=== PATIENT | female | born 1995 | race Caucasian/White ===

== ENCOUNTER 2018-09-03 10:41 | Inpatient (IN) ==
[2018-09-03] MEDS ORDERED: Haloperidol Lactate 5 MG/ML VIAL IM PRN (10:55)
[2018-09-03] MEDS ORDERED: MOM Conc 10 ML UD.LIQ PO PRN (10:55)
[2018-09-03] MEDS ORDERED: traZODone 50 MG TABLET PO PRN (10:55)
[2018-09-03] MEDS ORDERED: Mag Hydrox/Al Hydrox/Simeth 30 ML UDC PO PRN (10:55)
[2018-09-03] MEDS ORDERED: *HR* LORazepam 1 MG TABLET PO PRN (10:55)
[2018-09-03] MEDS ORDERED: *HR* LORazepam 2 MG/ML VIAL IM PRN (10:55)
[2018-09-03] MEDS ORDERED: Acetaminophen 325 MG TABLET PO PRN (10:55)
[2018-09-04] MEDS: hydrOXYzine pamoate 25 MG CAPSULE PO PRN (00:09)
[2018-09-04] MEDS: amLODIPine 5 MG TABLET PO SCH (09:32)
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
[2018-09-05] MEDS: amLODIPine 5 MG TABLET PO SCH (09:14)
[2018-09-05] MEDS: BuPROPion XL (24 HR) 150 MG TABLET PO SCH (09:14)
--- NOTE | 2018-09-05 10:16 | Psychiatry Progress Note ---
Date of Encounter: 09/05/18 Time of Encounter: 10:14 Subjective Interval history: Pt got her first dose of Wellbutrin this morning. So far she is tolerating it OK. She is still reporting some depression, sadness, and hopeless thoughts but no active suicidal ideation. No psychosis. Sleep was fair, appetite OK. Arm pain controlled. She plans to go live with her father which she said is a safe, supportive enviornment. 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 Review of Systems Constitutional: Denies: fever, chills, weakness, weight change Cardiovascular: Denies: chest pain, palpitations, dyspnea on exertion Respiratory: Denies: cough, dyspnea, wheezes Neurological: Denies: headache, weakness, numbness, memory loss Psychiatric: Reports: depression, hopelessness, mood swings Results - Vital Signs Vital Signs: Temp Pulse Resp BP Pulse Ox 98.6 F 86 16 139/92 99 09/04/18 21:00 09/04/18 21:00 09/04/18 21:00 09/04/18 21:00 09/04/18 21:00 - Labs Labs: Laboratory Results - last 48 hr 09/03/18 09/04/18 23:42 00:17 POC Glucose 71 113 H Assessment and Plan (1) Major depress dis, severe Current visit: Yes Status: Acute Plan: Continue hospitalization, Close observation, Suicide Precautions per unit protocol, Encourage participation in unit milieu, Group Therapy, Monitor sleep, Monitor appetite Additional Plan: continue wellbutrin Risks, benefits, side effects, alternatives discussed w/pt: Yes Patient agreeable to treatment: Yes Consult Discharge Plan - Plan Referrals: NONE,PCP [Primary Care Provider] - Psychiatry Exam - Constitutional Vitals: Temp Pulse Resp BP Pulse Ox 98.6 F 86 16 139/92 99 09/04/18 21:00 09/04/18 21:00 09/04/18 21:00 09/04/18 21:00 09/04/18 21:00 General appearance: disheveled - Musculoskeletal Gait: slow Station: relaxed Strength & Tone: normal for patient - Psychiatric Patient Orientation: Yes Person, Yes Time, Yes Place, Yes Circumstance Level of alertness: Alert Behavior: distractible Psychomotor activity: Slowed Eye Contact: Minimal Contact Mood Description: Depressed Affect description: blunted Speech Volume: Soft/Quiet Speech pattern: normal rhythm Language & Vocabulary: consistent with education
[2018-09-06] MEDS: amLODIPine 5 MG TABLET PO SCH (09:14)
[2018-09-06] MEDS: BuPROPion XL (24 HR) 150 MG TABLET PO SCH (09:14)
--- NOTE | 2018-09-06 09:32 | Psychiatry Progress Note ---
Date of Encounter: 09/06/18 Time of Encounter: 09:30 Subjective Interval history: Patient reports that she is tolerating Wellbutrin she continues to report depression with sad mood decrease interests and feelings of anhedonia. She says she is going to live with her father which is an okay living situation. She said her older sister is very supportive of her. She does want to get back into the workforce. She says she plans not to have any further contact with her ex- boyfriend. She reports that she has cut in the past but does not have any collection of razors or other implements she uses to cut. She said that she plans not to do this anymore. She denies active suicidal thoughts at this time but does have some ongoing hopelessness. Review of Systems Neurological: Denies: headache, weakness, numbness, memory loss Psychiatric: Reports: depression, difficulty concentrating, hopelessness, mood swings Results - Vital Signs Vital Signs: Temp Pulse Resp BP Pulse Ox 98.6 F 97 18 144/100 97 09/05/18 20:08 09/05/18 20:08 09/05/18 20:08 09/05/18 20:08 09/05/18 20:08 Assessment and Plan (1) Major depress dis, severe Current visit: Yes Status: Acute Additional Plan: The therapist is working on setting up outpatient appointments for her. I will consider increasing her Wellbutrin depending on how she progresses over the next 1-2 days. I will continue monitoring for side effects. Encourage group attendance. Risks, benefits, side effects, alternatives discussed w/pt: Yes Patient agreeable to treatment: Yes Consult Discharge Plan - Plan Referrals: NONE,PCP [Primary Care Provider] - Psychiatry Exam - Constitutional Vitals: Temp Pulse Resp BP Pulse Ox 98.6 F 97 18 144/100 97 09/05/18 20:08 09/05/18 20:08 09/05/18 20:08 09/05/18 20:08 09/05/18 20:08 General appearance: disheveled, obese - Musculoskeletal Gait: slow Station: slouched Strength & Tone: normal for patient - Psychiatric Patient Orientation: Yes Person, Yes Time, Yes Place Level of alertness: Alert Behavior: withdrawn Psychomotor activity: Slowed Eye Contact: Maintains Eye Contact Mood Description: Depressed Affect description: blunted Speech Volume: Soft/Quiet Speech pattern: limited Language & Vocabulary: consistent with education Thought Process: Intact Thought Content: Yes Intact, No Suicidal ideation, No Homicidal ideation Perceptual Disturbances: No Auditory hallucinations, No Visual hallucinations Attention Span Ability: Capable of Focused Attention Memory Description: Grossly Intact Patient Reliability: Reliable Historian Fund of knowledge: Yes abstraction ability, Yes aware of current events Intelligence Estimate: Average Judgment: Limited Insight: Minimal
[2018-09-06] MEDS: hydrOXYzine pamoate 25 MG CAPSULE PO PRN (20:35)
[2018-09-07] MEDS: BuPROPion XL (24 HR) 150 MG TABLET PO SCH (09:33)
[2018-09-07] MEDS: amLODIPine 5 MG TABLET PO SCH (09:33)
--- NOTE | 2018-09-07 10:30 | Psychiatry Progress Note ---
Date of Encounter: 09/07/18 Time of Encounter: 10:28 Subjective Interval history: Patient says she is feeling better. She continues to tolerate the medication well. She denies side effects. She says her sleep appetite and interests are good. She denies current suicidal ideation and is future oriented towards going back to live with her father. She wants to get a job. She is looking forward to visiting with her sister. She denies suicidal or homicidal thoughts ideations or plans. No psychotic symptoms. Review of Systems Psychiatric: Reports: depression (Improved) Results - Vital Signs Vital Signs: Temp Pulse Resp BP Pulse Ox 97.8 F 86 18 136/84 98 09/07/18 09:00 09/07/18 09:00 09/07/18 09:00 09/07/18 09:00 09/07/18 09:00 Assessment and Plan (1) Major depress dis, severe Current visit: Yes Status: Acute Additional Plan: Continue current medication Risks, benefits, side effects, alternatives discussed w/pt: Yes Patient agreeable to treatment: Yes Consult Discharge Plan - Plan Referrals: NONE,PCP [Primary Care Provider] - Psychiatry Exam - Constitutional Vitals: Temp Pulse Resp BP Pulse Ox 97.8 F 86 18 136/84 98 09/07/18 09:00 09/07/18 09:00 09/07/18 09:00 09/07/18 09:00 09/07/18 09:00 General appearance: age & developmentally appropriate - Musculoskeletal Gait: normal Station: relaxed Strength & Tone: normal for patient - Psychiatric Patient Orientation: Yes Person, Yes Time, Yes Place Level of alertness: Alert Behavior: calm, cooperative Psychomotor activity: Normal Eye Contact: Maintains Eye Contact Mood Description: Euthymic/stable Affect description: congruent with mood, full range Speech Volume: Normal Speech pattern: normal rate, normal rhythm, normal tone, fluent, spontaneous Language & Vocabulary: consistent with education Thought Process: Linear, Goal Oriented Thought Content: No Suicidal ideation, No Homicidal ideation, No Overt delusions Perceptual Disturbances: No Auditory hallucinations, No Visual hallucinations Attention Span Ability: Capable of Focused Attention Memory Description: Grossly Intact Patient Reliability: Reliable Historian Fund of knowledge: Yes abstraction ability, Yes aware of current events Intelligence Estimate: Average Judgment: Fair Insight: Partial
[2018-09-07] MEDS: hydrOXYzine pamoate 25 MG CAPSULE PO PRN (21:30)
--- NOTE | 2018-09-08 08:29 | Discharge Summary ---
Date of Encounter: 09/08/18 Time of Encounter: 08:21 Diagnosis - Discharge Diagnosis (1) Major depress dis, severe Status: Acute Medications - Discharge Medications Prescriptions: BuPROPion XL (24 HR) [Wellbutrin Xl] 150 mg PO DAILY #30 tab.er.24h hydrOXYzine pamoate [HydrOXYzine Pamoate] 25 mg PO TID PRN #90 capsule PRN Reason: Anxiety BuPROPion XL (24 HR) [Wellbutrin Xl] 150 mg PO DAILY #30 tab.er.24h 09/08/18 [Rx] amLODIPine [Norvasc] 5 mg PO DAILY tablet 09/08/18 [Rx] hydrOXYzine pamoate [HydrOXYzine Pamoate] 25 mg PO TID PRN #90 capsule 09/08/18 [Rx] Allergy/AdvReac Type Severity Reaction Status Date / Time No Known Allergies Allergy Verified 09/03/18 10:54 Results Procedures and tests throughout hospitalization: Pending Orders Provider Date of admission: 09/04/18 09:13 Primary care physician: PCP NONE Discharging clinician: Ashley Parker Psychiatry Exam - Constitutional Vitals: Temp Pulse Resp BP Pulse Ox 98.8 F 98 18 144/86 97 09/07/18 22:32 09/07/18 22:32 09/07/18 22:32 09/07/18 22:32 09/07/18 22:32 Additional observations: Patient is alert and oriented [address] time and situation, muscle tone grossly intact, speech normal limits for rhythm, rate, content and volume. Muscle tone is normal for patient. Grooming and hygiene are appropriate and eye contact is maintained appropriately. The patient appears age appropriate. Behavior is cooperative. Thought content is negative for suicidal or homicidal thoughts ideations or plans. There are no hallucinations or delusions. Mood is good and affect is reactive, consistent and congruent. Thought process is linear, logical, goal oriented and coherent thought. Memory is intact to recent and remote as the patient is able to recall several items after a delay and can consistently recall childhood information. Language and vocabulary are consistent with education and intelligence is estimated to be average based on education and general fund of information. Concentration and attention are sustained and appropriate. Insight and judgment are intact as the patient agrees with her diagnosis and the need for ongoing mental health treatment. Hospital Course Hospital course: Ms. Mccrary is a 23 year old female who was admitted for depression. She was started on Wellbutrin to address her depressed mood and anhedonia. She responded well to this medication. She was educated of her diagnosis and the risk-benefit side effects of this alternative treatment options she was monitored for responsiveness and side effects. Mood anxiety sleep and appetite interest improved as did future orientation self-harm thoughts subsided thinking cleared psychosis resolved mood stabilized. She was able to attend both individual and group therapy sessions as well as meeting with her psychiatrist daily and urged to discuss any medication she is treatment issues or other concerns. At the time of discharge she had really denied any concerned lethality including suicidal or homicidal thoughts ideations or plans and was future oriented toward ongoing mental health care medical follow-up and sobriety. Time spent discussing smoking cessation with patient: 3 to 10 minutes Does patient wish to continue nicotine replacement upon disc: No - Time Spent with Patient Total time spent providing and/or coordinating discharge services: Greater than 30 minutes (Interval history reviewed. Available labs reviewed . Psychotherapy provided. Patient had an opportunity to ask questions and address concerns. Patient was in agreement with the treatment plan. The risks benefits and side effects of medications were discussed with the patient, including alternatives and treatment. The patient was educated on the abstaining from any alcohol or illicit substances, following up with all scheduled appointments, and taking all medications as prescribed. The patient was educated on 90 meetings in 90 days and to find a sponsor.) Specific discharge activities: Interval history reviewed. Available labs reviewed . Psychotherapy provided. Patient had an opportunity to ask questions and address concerns. Patient was in agreement with the treatment plan. The risks benefits and side effects of medications were discussed with the patient, including alternatives and treatment. The patient was educated on the abstaining from any alcohol or illicit substances, following up with all scheduled appointments, and taking all medications as prescribed. The patient was educated on 90 meetings in 90 days and to find a sponsor. Assessment and Plan - Patient/Caregiver Discharge Instructions Activity: resume usual activities as tolerated Diet: regular diet Additional Instructions: Continue current medications. Follow up with outpatient mental health. Encourage continued therapy in a group or individual setting. The patient was discharged to home. - Follow up Plan Follow up with: NONE,PCP [Primary Care Provider] - Functional capacity at discharge: independent ambulation Overall status at discharge: Stable Disposition: Home, Self-Care Quality - Multiple Antipsychotics Patient discharged on 2 or more antipsychotic medications: No Procedures - Procedures Procedures: Medication Management, Crisis Stabilization, Supportive Therapy, Group Therapy, Psychoeducational Therapy
[2018-09-08] MEDS: amLODIPine 5 MG TABLET PO SCH (08:47)
[2018-09-08] MEDS: BuPROPion XL (24 HR) 150 MG TABLET PO SCH (08:48)
[2018-09-08 09:39] VITALS: BP 138/88
== END 2018-09-08 11:25 | disposition home or self-care (01) | DRG 751 ==
LOC: 1ANU 10:41 → MERGE 09-04 09:13 → 1ANU 09-04 09:13 → SUATTDRO 09-04 09:13
PROVIDERS: ADMIT Psychiatry & Neurology Psychiatry; ATTEND Psychiatry & Neurology Psychiatry

== ENCOUNTER 2022-01-10 00:15 | Inpatient (IN) ==
[2022-01-10] MEDS ORDERED: Haloperidol Lactate 5 MG/ML VIAL IM PRN (00:36)
[2022-01-10] MEDS ORDERED: traZODone 50 MG TABLET PO PRN (00:36)
[2022-01-10] MEDS ORDERED: haloperidoL 5 MG TABLET PO PRN (00:36)
[2022-01-10] MEDS ORDERED: Acetaminophen 325 MG TABLET PO PRN (00:36)
[2022-01-10] MEDS ORDERED: hydrOXYzine pamoate 25 MG CAPSULE PO PRN (00:36)
[2022-01-10] MEDS ORDERED: *HR* LORazepam 1 MG TABLET PO PRN (00:36)
[2022-01-10] MEDS ORDERED: *HR* LORazepam 2 MG/ML VIAL IM PRN (00:36)
[2022-01-10 00:48] VITALS: PULSE 100; O2SAT 98
[2022-01-10] MEDS ORDERED: *HR* Metformin 500 MG TABLET PO SCH ×2 (08:00→17:00)
[2022-01-10 10:08] VITALS: BP 112/78; TEMP 98.4
[2022-01-11] MEDS ORDERED: lisinopriL 20 MG TABLET PO SCH (09:00)
== END 2022-01-10 17:30 | disposition home or self-care (01) | DRG 880 ==
LOC: 1ANU 00:15
PROVIDERS: ADMIT Psychiatry & Neurology Neurology; ATTEND Psychiatry & Neurology Neurology

== ENCOUNTER 2022-01-14 22:22 | Inpatient (IN) ==
[2022-01-14] MEDS ORDERED: *HR* LORazepam 1 MG TABLET PO PRN (22:33)
[2022-01-14] MEDS ORDERED: *HR* LORazepam 2 MG/ML VIAL IM PRN (22:33)
[2022-01-14] MEDS ORDERED: haloperidoL 5 MG TABLET PO PRN (22:33)
[2022-01-14] MEDS ORDERED: Acetaminophen 325 MG TABLET PO PRN (22:33)
[2022-01-14] MEDS ORDERED: MOM Conc 10 ML UD.LIQ PO PRN (22:33)
[2022-01-14] MEDS ORDERED: traZODone 50 MG TABLET PO PRN (22:33)
[2022-01-14] MEDS ORDERED: Mag Hydrox/Al Hydrox/Simeth 30 ML UDC PO PRN (22:33)
[2022-01-14] MEDS ORDERED: Haloperidol Lactate 5 MG/ML VIAL IM PRN (22:33)
[2022-01-19 09:44] VITALS: BP 116/81; PULSE 77; TEMP 96.9; O2SAT 98
== END 2022-01-19 20:15 | disposition home or self-care (01) | DRG 754 ==
LOC: 1ANU 22:22
PROVIDERS: ADMIT Psychiatry & Neurology Forensic Psychiatry; ATTEND Psychiatry & Neurology Forensic Psychiatry